=== PATIENT | female | born 1995 | race Caucasian/White ===

== ENCOUNTER 2016-10-24 20:27 | Emergency (ER) | payer BC ==
[~2016-10-24] VITALS: Ht 162.6 cm; Wt 57.3 kg
[2016-10-24 20:39] VITALS: BP 120/72; TEMP 98.9
[2016-10-24] MEDS ORDERED: VYVANSE40 MG PO (20:42)
[2016-10-24] MEDS ORDERED: SPRINTEC 35 MCG1 TAB PO (20:42)
[2016-10-24] MEDS ORDERED: ADDERALL XR20 MG PO (20:42)
[2016-10-24] MEDS ORDERED: NORCO 325 MG-51 TAB PO (22:42)
[2016-10-24 22:56] VITALS: PULSE 98
== END 2016-10-24 22:55 | disposition home or self-care (01) ==
LOC: COL.ER 20:27
DX: L02.415 Cutaneous abscess of right lower limb (principal)
CPT/HCPCS: J2270